=== PATIENT | male | born 1990 | race Caucasian/White ===

== ENCOUNTER 2020-10-02 12:52 | Outpatient (CLI) | payer OTHER, SELFPAY ==
--- NOTE | 2020-10-02 12:55 | CT_ITS ---
WS: [id number] CT CHEST ANGIOGRAPHY WITH REFORMATS HISTORY: DYSPNEA, ELEVATED D DIMER TECHNIQUE: Contiguous axial images are obtained through the chest during arterial injection of intrav enous contrast. Images are reconstructed to evaluate the pulmonary arteries. MIP imaging also reviewe d. All CT scans at use at least one of these dose optimization techniques: aut omated exposure control; mA and/or kV adjustment per patient size (includes targeted exams where dose is matched to clinical indication); or iterative reconstruction. CONTRAST: Omnipaque 350; 95 mL IV. DLP: 761.99 mGy-cm. COMPARISON: None available. Good opacification of pulmonary arteries. Pulmonary artery size is equal to the aorta. No filling def ects or pulmonary emboli. Normal thoracic aorta. No pericardial or pleural effusions. Cardiac chamber s are normal size. No mediastinal or hilar adenopathy. Visualized portion the lower neck and anterior chest wall are negative. Visualized upper abdomen is n ormal. No adrenal mass. No osteoblastic or osteolytic bone disease. CT/CT angio chest PE protcl [id number] IMPRESSION: Normal pulmonary CT angiogram. No pneumonia or pulmonary emboli.
[2020-10-02] MEDS: iohexol 350 mg/mL 100 mL Btl IV (13:15)
== END 2020-10-02 12:53 | disposition home or self-care (01) ==
PROVIDERS: Visit Provider Family Medicine
DX: R06.00 Dyspnea, unspecified (principal); R79.89 Other specified abnormal findings of blood chemistry
CPT/HCPCS: 71275; Q9967

== ENCOUNTER 2021-03-25 | Outpatient (CLI) | payer OTHER, SELFPAY ==
[2021-03-25 10:12] LABS: D Dimer <= 0.27 ug/mIFEU (0-0.59)
== END 2021-03-25 00:01 | disposition home or self-care (01) ==
LOC: LAB 10-18 14:42
PROVIDERS: PCP Nurse Practitioner Family; Visit Provider Nurse Practitioner Family
DX: R07.89 Other chest pain (principal)
CPT/HCPCS: 85378

== ENCOUNTER 2021-04-30 12:33 | Outpatient (CLI) | payer OTHER, SELFPAY ==
--- NOTE | 2021-04-30 12:39 | CT_ITS ---
WS: [id number] CT HEAD NONCONTRAST HISTORY: HEAD INJURY TECHNIQUE: Contiguous axial imaging performed through the brain in 2.5 mm imaging. Bone and soft tiss ue windows. Sagittal and coronal reformats reviewed. All CT scans at [facility] use at least one of these dose optimization techniques: automated exposure control; mA and/or kV adjustment per pa tient size (includes targeted exams where dose is matched to clinical indication); or iterative recon struction. DLP: 934.02 mGy.cm COMPARISON: None available. No acute intracranial hemorrhage, midline shift or mass effect. No atrophy or prior infarcts or herniation. Ventricles: Normal size with no hydrocephalus. Paranasal sinuses: As visualized are clear. Mastoid air cells: Well pneumatized. Calvarium and scalp: Skull is intact with no soft tissue edema or swelling. CT/CT head wo con* [id number] IMPRESSION: Negative head CT.
== END 2021-04-30 12:34 | disposition home or self-care (01) ==
LOC: RAD 12:36
PROVIDERS: PCP Nurse Practitioner Family; Visit Provider Nurse Practitioner Family
DX: S09.90XA Unspecified injury of head, initial encounter (principal); X58.XXXA Exposure to other specified factors, initial encounter
CPT/HCPCS: 70450

== ENCOUNTER 2021-08-09 17:28 | Emergency (ER) | payer OTHER, SELFPAY ==
[2021-08-09 17:42] VITALS: BP 150/83; PULSE 101; RESP 16; TEMP 36.9; O2SAT 97; BMI 34.4
--- NOTE | 2021-08-09 17:42 | W.ED.ABDPA2 ---
HPI - Abdominal Pain General: Chief Complaint: Abdominal Pain Stated Complaint: ABD Pain in R side Time Seen by Provider: 08/09/21 17:41 History of Present Illness: 30-year-old male patient comes in today with complaints of right inguinal pain. Patient also reports some right flank pain. Patient states last week on Monday he noticed the discomfort and pain. Patient was seen in urgent care on Monday and a urinalysis was negative. It was thought patient probably had a groin pull because he had played hockey 2 days prior. Patient came in today due to worsening discomfort. Patient had been treated for a yeast infection 1 week ago. Patient denies any penile discharge. Patient denies any chronic medical problems. Patient sees Alejandra Matias as his primary care. Review of Systems General: Reports: 10 or more systems reviewed and unremarkable except in HPI and below GI: Reports: abdominal pain : Reports: flank pain Physical Exam Const: COMMON NORMALS: alert HENMT: COMMON NORMALS: atraumatic HEAD & SCALP: atraumatic MOUTH: Normal oral and palatal mucosa present Neck/C-Spine: COMMON NORMALS: full ROM, no lymphadenopathy and no meningeal signs Resp: COMMON NORMALS: normal respiratory effort and clear to auscultation bilaterally AUSCULTATION: clear to auscultation bilaterally Cardio: COMMON NORMALS: regular rate and regular rhythm RATE: regular rate RHYTHM: regular rhythm GI: COMMON NORMALS: Soft to palpation and non-tender PALPATION: Yes Soft to palpation : COMMON NORMALS: Yes no CVA tenderness, Yes Testes normal, Yes scrotum normal and Yes No hernias present BLADDER/KIDNEY EXAM: Yes no CVA tenderness PENIS: normal penis and circumcised Back/Pelvis: COMMON NORMALS: no CVA tenderness Extremity: COMMON NORMALS: normal to inspection and no pedal edema Neuro: SENSORIUM/ORIENTATION: Yes alert MENINGEAL SIGNS: Yes no meningeal signs Psych: COMMON NORMALS: cooperative Skin: COMMON NORMALS: no rashes or lesions noted GENERAL SKIN EXAM: no rashes or lesions noted Course Vital Signs: Vital signs: Vital Signs Temperature 97.1 F L 08/09/21 17:47 Pulse Rate 78 08/09/21 18:30 Respiratory Rate 18 08/09/21 18:30 Blood Pressure 124/71 08/09/21 18:30 Pulse Oximetry 96 08/09/21 18:30 MDM - Abdominal Pain Medical Decision Making Patient comes in today with complaints of abdominal discomfort to the right lower quadrant radiating into his groin. Patient also reports some right flank pain. On exam abdomen is soft and nontender. No guarding or rebound tenderness is noted. Inguinal exam elicits no sign of hernia. Testicular exam was normal. No redness or erythema was noted to the skin. No CVA tenderness was noted with percussion. Vital signs were normal except for some mild tachycardia at 101. Differential diagnosis includes but not limited to renal calculi, appendicitis, inguinal hernia, muscle strain. CBC was unremarkable, CMP was normal. Urinalysis had a trace of occult blood but otherwise normal. CT of the abdomen pelvis was normal. No signs of an acute surgical abdomen is noted. I believe the patient probably has some inguinal strain. We will place him on diclofenac 75 mg twice a day for pain and inflammation. Patient can also use acetaminophen for further pain relief. Encourage patient to drink plenty of water and maintain light activity avoiding intense activity or heavy lifting. Patient reports understanding and agreed to plan. Lab Data : 08/09/21 17:53 08/09/21 17:53 Labs/Radiology: Radiology Impressions Abdomen/Pelvis CT 08/09/21 17:51 IMPRESSION: No acute findings. Laboratory Results WBC 5.3 10^3/uL (4.0-10.0) 08/09/21 17:53 RBC 4.70 10^6/uL (4.1-5.3) 08/09/21 17:53 Hgb 14.1 g/dL (11.7-16.6) 08/09/21 17:53 Hct 42.2 % (42.0-52.0) 08/09/21 17:53 MCV 89.8 fl (80-94) 08/09/21 17:53 MCH 30.0 pg (28.0-34.0) 08/09/21 17:53 MCHC 33.4 g/dL (30.0-36.0) 08/09/21 17:53 RDW 11.8 % (12.1-15.1) L 08/09/21 17:53 Plt Count 233 10^3/cmm (130-400) 08/09/21 17:53 MPV 10.6 fL (7.4-10.4) H 08/09/21 17:53 Neut % (Auto) 50.3 % 08/09/21 17:53 Lymph % (Auto) 32.2 % 08/09/21 17:53 [place] % (Auto) 13.7 % 08/09/21 17:53 Eos % (Auto) 3.2 % 08/09/21 17:53 Baso % (Auto) 0.4 % 08/09/21 17:53 Neut # (Auto) 2.69 10^3/uL (1.8-7.7) 08/09/21 17:53 Lymph # (Auto) 1.7 10^3/uL (0.8-4.8) 08/09/21 17:53 [place] # (Auto) 0.7 10^3/uL (0.2-0.9) 08/09/21 17:53 Eos # (Auto) 0.2 10^3/uL (0.0-0.8) 08/09/21 17:53 Baso # (Auto) 0.0 10^3/uL (0.0-0.1) 08/09/21 17:53 Nucleated RBC % (auto) 0 % 08/09/21 17:53 Nucleated RBCs # 0.0 /100WBC 08/09/21 17:53 Sodium 137 mmol/L (136-145) 08/09/21 17:53 Potassium 4.0 mmol/L (3.5-5.1) 08/09/21 17:53 Chloride 101 mmol/L (98-107) 08/09/21 17:53 Carbon Dioxide 24 mmol/L (22-29) 08/09/21 17:53 Anion Gap 16.0 (5-19) 08/09/21 17:53 BUN 14 mg/dL (6-20) 08/09/21 17:53 Creatinine 0.9 mg/dL (0.7-1.2) 08/09/21 17:53 GFR Calculation 99.1 mL/min (90-130) 08/09/21 17:53 Glucose 112 mg/dL (65-115) 08/09/21 17:53 Calculated Osmolality 285 mOsm/kg (285-295) 08/09/21 17:53 Calcium 9.3 mg/dL (8.5-10.5) 08/09/21 17:53 Total Bilirubin 0.3 mg/dL (0.15-1.2) 08/09/21 17:53 AST 21 U/L (0-40) 08/09/21 17:53 ALT 23 U/L (0-41) 08/09/21 17:53 Alkaline Phosphatase 65 IU/L (40-130) 08/09/21 17:53 Total Protein 7.8 g/dL (6.6-8.7) 08/09/21 17:53 Albumin 4.1 g/dL (3.5-5.2) 08/09/21 17:53 Globulin 3.7 g/dL (1.3-4.6) 08/09/21 17:53 Lipase 26 U/L (13-60) 08/09/21 17:53 Urine Color Straw (Yellow) 08/09/21 18:40 Urine Appearance Clear (CLEAR) 08/09/21 18:40 Urine pH 5 (5-7) 08/09/21 18:40 Ur Specific [place] 1.010 (1.005-1.030) 08/09/21 18:40 Urine Protein Neg (Negative) 08/09/21 18:40 Urine Glucose (UA) Norm (Normal) 08/09/21 18:40 Urine Ketones Negative (Negative) 08/09/21 18:40 Urine Blood 2+ (Negative) H 08/09/21 18:40 Urine Nitrate Negative (Negative) 08/09/21 18:40 Urine Bilirubin Neg (Negative) 08/09/21 18:40 Urine Urobilinogen Norm mg/dL (Negative) 08/09/21 18:40 Ur Leukocyte Esterase Negative (Negative) 08/09/21 18:40 Urine RBC Rare /hpf (0-2) 08/09/21 18:40 Urine WBC None /hpf (0-5) 08/09/21 18:40 Ur Squamous Epith Cells None /hpf (0-5) 08/09/21 18:40 Amorphous Sediment Not Reportable 08/09/21 18:40 Urine Bacteria Trace /hpf (NONE) 08/09/21 18:40 Discharge Plan Discharge Patient Disposition: Home Clinical Impression: Strain of right groin Condition: Stable Prescriptions: New diclofenac sodium 75 mg tablet,delayed release (DR/EC) 75 mg PO BID PRN (Reason: pain (scale score 7-10)) Qty: 20 0RF Discharge Orders: Discharge ED (Routine); Ordered 08/09/21 Ordered By: José Luis Zambrano Referrals: Alejandra Matias FNP [Primary Care Provider] - Discharge Diet: Usual diet Discharge Activity: Increase activity as tolerated and Limit activity as instructed Patient Instructions: Musculoskeletal Pain (ED) Activity Restrictions/Additional Instructions: Light activity. Use diclofenac twice a day for pain and inflammation. Use acetaminophen for breakthrough pain. Drink plenty of water with medication. Avoid heavy lifting, intense activity until pain is improving if not resolved. Follow-up with primary care as needed. Return to ER for high fever greater than 100.4, redness or inflammation in the area of pain, or new concerns. Coding Level of Care Code ED Outside [employer] for Chg Fwd Exam Comprehensive
[2021-08-09 17:47] VITALS: BP 132/87; PULSE 87; RESP 18; TEMP 36.2; O2SAT 95
--- NOTE | 2021-08-09 17:51 | CTR_ITS ---
PROCEDURE INFORMATION: Exam: CT Abdomen And Pelvis With Contrast Exam date and time: 08/09/2021 5:51 PM Age: 30 years old Clinical indication: Abdominal pain; Localized; Right lower quadrant (rlq); Patient HX: Rlq pain; Additional info: Rlq abd pain, inguinal discomfort TECHNIQUE: Imaging protocol: Computed tomography of the abdomen and pelvis with contrast. Radiation optimization: All CT scans at this facility use at least one of these dose optimization techniques: automated exposure control; mA and/or kV adjustment per patient size (includes targeted exams where dose is matched to clinical indication); or iterative reconstruction. Contrast material: OMNI 300; Contrast volume: 95 ml; Contrast route: INTRAVENOUS (IV); COMPARISON: US scrotum [id number] 04/23/2020 9:38 AM RADIATION DOSE METRICS: Total DLP (mGy-cm): FINDINGS: Liver: Normal. No mass. Gallbladder and bile ducts: Normal. No calcified stones. No ductal dilation. Pancreas: Normal. No ductal dilation. Spleen: Normal. No splenomegaly. Adrenal glands: Normal. No mass. Kidneys and ureters: Normal. No hydronephrosis. Stomach and bowel: Unremarkable. No obstruction. No mucosal thickening. Appendix: No evidence of appendicitis. Intraperitoneal space: Unremarkable. No free air. No significant fluid collection. Vasculature: Unremarkable. No abdominal aortic aneurysm. Lymph nodes: Unremarkable. No enlarged lymph nodes. Urinary bladder: Unremarkable as visualized. Reproductive: Unremarkable as visualized. Bones/joints: Unremarkable. No acute fracture. Soft tissues: Unremarkable. CT/CT abdomen pelvis w con* [id number] IMPRESSION: No acute findings.
[2021-08-09 18:05] LABS: Basophils % 0.4 %; Eosinophils # 0.2 10^3/uL (0.0-0.8); Eosinophils % 3.2 %; Hematocrit 42.2 % (42.0-52.0); Hemoglobin 14.1 g/dL (11.7-16.6); Lymphocytes # 1.7 10^3/uL (0.8-4.8); Lymphocytes % 32.2 %; Mean Corpuscular HGB Conc 33.4 g/dL (30.0-36.0); Mean Corpuscular Volume 89.8 fl (80-94); Mean Platelet Volume 10.6 fL (7.4-10.4); Monocytes # 0.7 10^3/uL (0.2-0.9); Monocytes % 13.7 %; Neutrophils # 2.69 10^3/uL (1.8-7.7); Neutrophils % 50.3 %; Nucleated Red Blood Cells % 0 %; Platelet Count 233 10^3/cmm (130-400); Red Cell Distribution Width 11.8 % (12.1-15.1); White Blood Count 5.3 10^3/uL (4.0-10.0)
[2021-08-09] MEDS: iohexol 300 mg/mL 100 mL Btl IV (18:10)
[2021-08-09 18:20] VITALS: BP 132/87; PULSE 92; RESP 18; O2SAT 96
[2021-08-09 18:30] VITALS: BP 124/71; PULSE 78; RESP 18; O2SAT 96
[2021-08-09 18:40] LABS: Alanine Aminotransferase 23 U/L (0-41); Albumin Level 4.1 g/dL (3.5-5.2); Alkaline Phosphatase 65 IU/L (40-130); Aspartate Amino Transferase 21 U/L (0-40); Blood Urea Nitrogen 14 mg/dL (6-20); Calcium 9.3 mg/dL (8.5-10.5); Carbon Dioxide 24 mmol/L (22-29); Chloride 101 mmol/L (98-107); Globulin 3.7 g/dL (1.3-4.6); Glomerular Filtration Rate 99.1 mL/min (90-130); Glucose 112 mg/dL (65-115); Lipase 26 U/L (13-60); Osmolality Calculated 285 mOsm/kg (285-295); Sodium 137 mmol/L (136-145); Total Bilirubin 0.3 mg/dL (0.15-1.2); Total Protein 7.8 g/dL (6.6-8.7)
[2021-08-09 18:55] LABS: Glucose Urine UA Norm (Normal); Protein Urine Neg (Negative); Urine Appearance Clear (CLEAR); Urine Color Straw (Yellow); pH Urine 5 (5-7)
[2021-08-09 18:56] LABS: Ketones Urine Negative (Negative)
[2021-08-09 18:57] LABS: Add Urine Culture? No; Add Urine Microscopic? YES; Bacteria Urine TRACE /hpf; Bilirubin Urine Neg (Negative); Blood Urine 2+ (Negative); Leukocyte Esterase Urine Negative (Negative); Nitrate Urine Negative (Negative); RBC Urine RARE /hpf (0-2); Urobilinogen Urine Norm (Negative)
--- NOTE | 2021-08-09 19:03 | PC.NURSE ---
report received patient on stretcher respirations even equal and unlabored. NAD
== END 2021-08-09 19:10 | disposition home or self-care (01) ==
PROVIDERS: Emergency Provider Nurse Practitioner Family; PCP Nurse Practitioner Family
DX: S39.011A Strain of muscle, fascia and tendon of abdomen, initial encounter (principal); X58.XXXA Exposure to other specified factors, initial encounter; Y93.22 Activity, ice hockey
CPT/HCPCS: 74177; 80053; 81001; 83690; 85025; 99283; Q9967